=== PATIENT | male | born 1940 | race Caucasian/White ===

== ENCOUNTER 2016-07-22 11:34 | Inpatient (IN) | payer MEDICARE, OTHER ==
--- NOTE | ~2016-07-22 | HP ---
History And Physical [place] [address] [facility] [place]. [address] NAME: ABDI CHING : [birth year] STATUS : REG ER PAT#: [id number] AGE: 76 ADM/REG DATE : 07/22/16 MR#: [id number] REPORT SERV DATE: 07/22/16 DICTATED BY: GLADIS CARDENAS DATE: 07/22/16 REPORT STATUS : Draft TRANSCRIBED BY: KVNG DATE: 07/22/16 DATE OF ADMISSION: 07/22/2016 [employer]ER FARM WORKER: Ladarius Gallardo M.D., F.A.C.C. LICENSED OCCUPATIONAL THERAPY ASSISTANT: Dr. Chilel in [place], [place]. HISTORY OF PRESENT ILLNESS: The patient had surveillance colonoscopy done one year ago where he was found to have some benign polyps. He also had a previous EGD and from what he remembered, it was normal. The patient is an active individual and has this exercise regimen that he does for about eight months now. However, in the last four to five weeks, he noted that he has been having some intermittent melena. He did not think much about it because it turns brown anyway. No hematochezia. The patient occasionally feels bloating but his appetite remained stable, and there is no loss of weight. In about two to three weeks now, the patient has been having progressive shortness of breath, not able to do the same exercise regimen that he is doing and more recently, he just walks to his mailbox, which is about 75 yards and he is already out of breath. The patient was then brought to the emergency room where he was found to be anemic and we are called to admit the patient. The patient denies any pain. He denies any near syncopal or syncopal episode. No rashes. No fever, chills, or sweats. No nausea or vomiting. No rashes or joint pains. REVIEW OF SYSTEMS: The rest of the 14-point review of systems is negative except as above. PAST MEDICAL HISTORY: Includes CAD with history of stents and [place], hypertension, and diabetes. ALLERGIES: HE HAS NO KNOWN DRUG ALLERGIES. MEDICATIONS: Include Norvasc, aspirin, Lipitor, Lasix, Amaryl, lisinopril, nitroglycerin, MiraLAX, potassium, Metamucil, Janumet. Of note, he takes Aleve seldom for occasional headaches. FAMILY HISTORY: Heart disease runs in the family, not sure about high blood pressure. Brother with diabetes. SOCIAL HISTORY: The patient does not smoke, but chews tobacco. Ex-alcoholic. No IVDU. PHYSICAL EXAMINATION: GENERAL: The patient is alert and oriented x3, not in cardiopulmonary distress. VITAL SIGNS: Include a blood pressure of 127/59, temperature of 98.2, pulse rate of 100, respiration of 16, saturating 95% on room air. NECK: He has supple neck. No JVD or carotid bruits. No lymphadenopathy. [place] conjunctivae. Anicteric sclerae. No pharyngeal erythema. LUNGS: Clear. No rales. No wheezes. CARDIOVASCULAR: Regular rate and rhythm. There is 2/6 systolic murmur. History And Physical [address] [address] NAME: ABDI CHING : 40 STATUS : REG ER PAT#: [id number] AGE: 76 ADM/REG DATE : 07/22/16 MR#: [id number] REPORT SERV DATE: 07/22/16 DICTATED BY: GLADIS CARDENAS DATE: 07/22/16 REPORT STATUS : Draft TRANSCRIBED BY: KVNG DATE: 07/22/16 ABDOMEN: Positive bowel sounds. Soft and nontender. No masses. EXTREMITIES: Fair pulses. No edema. NEURO: Nonlocalizing. LABORATORY DATA: Reveals an x-ray showing mild cardiomegaly, [id number]-os-[id number] congestive failure changes. CAT scan of the chest, abdomen, and pelvis showing no evidence of acute abnormality, bilateral pleural fluid and bibasilar atelectasis, cholelithiasis with no pericholecystic inflammation, bilateral renal cysts, diverticulosis with no evidence of diverticulitis, calcific atherosclerosis. Chemistry showing a glucose of 186, albumin of 2.9, lipase is negative, troponin is negative, BNP of 174. White count of 9.2, but H and H is 7.8 and 25 and previously, it was 10.4 and 33, 10 months ago. MCV of 79.4. Urinalysis is unremarkable as well. ASSESSMENT: 1. Symptomatic anemia. 2. Possible gastrointestinal bleed. 3. coronary artery disease with history of stents and myocardial infarction. 4. Hypertension. 5. Diabetes. PLAN: The patient's H and P points to a possible GI bleed. We will admit to telemetry and hold the aspirin and Aleve for now. Monitor H and H. Transfuse p.r.n. I will place on PPI drip for now and get GI to scope. We will hold diuretics put parameters on the rest of the blood pressure medications, place on subcu insulin protocol and check the hemoglobin A1c. This was explained to him in front of the son, and they agreed and understood the plan. DANIELA/KVNG Gladis Cardenas M.D. / [id number] CC: FRANK CORDERO
--- NOTE | ~2016-07-22 | EGD ---
EGD REPORT [facility] [address] [place] [address] NAME: ABDI CHING : 40 STATUS : ADM IN PAT#: [id number] AGE: 76 ADM/REG DATE : 07/22/16 MR#: [id number] REPORT SERV DATE: 07/24/16 DICTATED BY: ZIA CARMONA DATE: 07/24/16 REPORT STATUS : Draft TRANSCRIBED BY: [employer] DATE: 07/24/16 [facility] Patient Name: Abdi Ching Date of : 1940 Attending MD: ZIA CARMONA, Procedure Date No Time: 07/24/2016 Procedure: Colonoscopy Indications: Melena, Iron deficiency anemia Medicines: Monitored Anesthesia Care Complications: No immediate complications. Estimated blood loss: None. Procedure: Pre-Anesthesia Assessment: - ASA Grade Assessment: IV - A patient with severe systemic disease that is a constant threat to life. After I obtained informed consent, the scope was passed under direct vision. Throughout the procedure, the patient's blood pressure, pulse, and oxygen saturations were monitored continuously. The CF [id number] was introduced through the anus and advanced to the terminal ileum. The colonoscopy was performed without difficulty. The patient tolerated the procedure well. The quality of the bowel preparation was good. Findings: The perianal and digital rectal examinations were normal. Multiple small-mouthed diverticula were found in the sigmoid colon, in the descending colon, in the transverse colon, in the ascending colon and in the cecum. The terminal ileum appeared normal. The exam was otherwise without abnormality on direct and retroflexion views. Impression: - Diverticulosis in the sigmoid colon, in the descending colon, in the transverse colon, in the ascending colon and in the cecum. - The examined portion of the ileum was normal. - The examination was otherwise normal on direct and retroflexion views. Recommendation: - Patient has a contact number available for emergencies. The signs and symptoms of potential delayed complications were discussed with the patient. Return to normal activities tomorrow. Written discharge instructions were provided to the patient. - Return to previous diet. - Continue present medications. EGD REPORT [address] [address] NAME: ABDI CHING : 40 STATUS : ADM IN [facility]#: [id number] AGE: 76 ADM/REG DATE : 07/22/16 MR#: [id number] REPORT SERV DATE: 07/24/16 DICTATED BY: ZIA CARMONA DATE: 07/24/16 REPORT STATUS : Draft TRANSCRIBED BY: [employer] DATE: 07/24/16 - Ferrous sulfate at 325 mg orally daily. - To visualize the small bowel, perform video capsule endoscopy at outpatient appointment to be scheduled. Procedure Code(s): --- Professional --- 90473, Colonoscopy, flexible, proximal to splenic flexure; diagnostic, with or without collection of specimen(s) by brushing or washing, with or without colon decompression (separate procedure) Diagnosis Code(s): --- Professional --- K57.30, Diverticulosis of large intestine without perforation or abscess without bleeding K92.1, Melena D50.9, Iron deficiency anemia, unspecified CPT copyright 2013 [employer]. All rights reserved. The codes documented in this report are preliminary and upon manager customer service review may be revised to meet current compliance requirements. ZIA CARMONA, 07/24/2016 8:35 AM Number of Addenda: 0 Note Initiated On: 07/24/2016 8:03 AM [address] [address]
--- NOTE | ~2016-07-22 | DS ---
Discharge Summary [facility] [address] [place]. [address] NAME: ABDI CHING : 40 STATUS : ADM IN [facility]#: [id number] AGE: 76 ADM/REG DATE : 07/22/16 MR#: [id number] REPORT SERV DATE: 07/25/16 DICTATED BY: GLADIS CARDENAS DATE: 07/25/16 REPORT STATUS : Draft TRANSCRIBED BY: MODL DATE: 07/25/16 ADMISSION DATE: 07/22/2016 DISCHARGE DATE: SUPPORT ASSISTANT: Ladarius Gallardo M.D., F.A.C.C. GI: Dr. Chilel. CONSULTING PHYSICIANS: Dr. Kim and Dr. Muro. FINAL DIAGNOSES: 1. Acute blood loss anemia, status post 1 unit packed RBC. 2. Likely gastrointestinal bleed. 3. Coronary artery disease with history of stents and myocardial infarction. 4. Hypertension. 5. Diabetes. DIAGNOSTIC EXAM: Colonoscopy showing diverticulosis in the sigmoid colon, in the descending colon, in the transverse colon, in the ascending colon, and in the cecum. Examined portion of the ileum was normal. Examination was otherwise normal on the retroflexion view. EGD; no bleeding found, duodenal polyp resected , pathology pending. Chest x ray; Mild cardiomegaly, recurrent [id number]-swsntktp congestive failure changes. CAT scan of the abdomen and pelvis showing no evidence of acute abnormality within the abdomen or pelvis, bilateral pleural fluid and bibasilar atelectasis, cholelithiasis with no justen cholecystic inflammation, bilateral renal cysts, diverticulosis with no evidence of diverticulitis, calcific atherosclerosis. HOSPITAL COURSE: Please refer to the H and P done by myself dated on 07/22/2016. Briefly, this is a 76-year-old male, with history of CAD, comes in with dyspnea on exertion. The patient admits to having increasing dyspnea on exertion for the last five weeks with intermittent melena. The patient comes in and his H and H was found to be low at 7.8 and 25, from a year ago which is 10.4 and 33. The patient was then admitted and his H and H was monitored. He got one unit of blood and it went up to 8.3 and 26.4. He did not have any more bleeding and the retic count was found to be elevated. Anemia workup revealed that he has iron deficiency anemia. We got GI involved and they did the above scopes, they then signed off. The patient feels better now and we will be discharging him with the above diagnosis. I have discussed with him the findings of the scopes and if this happens again or even later on, it might be worthwhile for him to do a PillCam as the small bowel has not been thoroughly examined. I will give him a prescription for iron 325 mg p.o. b.i.d., with a that this could cause constipation and melena, and he will continue his home medications of Norvasc 10 mg at bedtime, aspirin 81 mg a day, Lipitor 20 mg at bedtime, Lasix 20 mg a day, Amaryl 4 mg twice a day, lisinopril 10 mg a day, potassium 20 mEq every morning, Janumet XR twice a day, Nitrostat p.r.n., MiraLAX p.r.n., psyllium p.r.n. The patient will be following up with his PCP Virginia Alfaro, follow up with Ranjana in a month for consideration of PillCam and also to follow up the duodenal polyp pathology which was taken, and follow up with Ladarius Gallardo M.D., F.A.C.C. as needed Discharge Summary [address] [address] NAME: ABDI CHING : 40 STATUS : ADM IN [facility]#: [id number] AGE: 76 ADM/REG DATE : 07/22/16 MR#: [id number] REPORT SERV DATE: 07/25/16 DICTATED BY: GLADIS CARDENAS DATE: 07/25/16 REPORT STATUS : Draft TRANSCRIBED BY: KVNG DATE: 07/25/16 and as scheduled. This has been explained to the patient. TIME SPENT: 35 minutes. DANIELA/KVNG Gladis Cardenas M.D. / [id number] CC: Georgina Boyer KERRY
--- NOTE | ~2016-07-22 | EGD ---
EGD REPORT [facility] [address] [address] NAME: ABDI CHING : 40 STATUS : ADM IN PAT#: [id number] AGE: 76 ADM/REG DATE : 07/22/16 MR#: [id number] REPORT SERV DATE: 07/23/16 DICTATED BY: CALVIN ANDRADE DATE: 07/23/16 REPORT STATUS : Draft TRANSCRIBED BY: [facility] DATE: 07/23/16 Endoscopy Center Patient Name: Abdi Chnig Date of : 1940 Attending MD: CALVIN ANDRADE MD Procedure Date No Time: 07/23/2016 Procedure: Upper GI endoscopy Indications: Melena Referring MD: FRANK CORDERO Medicines: Monitored Anesthesia Care Complications: No immediate complications. Estimated blood loss: Minimal. Procedure: Pre-Anesthesia Assessment: - ASA Grade Assessment: IV - A patient with severe systemic disease that is a constant threat to life. After obtaining informed consent, the endoscope was passed under direct vision. Throughout the procedure, the patient's blood pressure, pulse, and oxygen saturations were monitored continuously. The GIF [id number] was introduced through the mouth, and advanced to the third part of duodenum. The upper GI endoscopy was accomplished without difficulty. The patient tolerated the procedure well. Findings: The examined esophagus was normal. The entire examined stomach was normal. A single 10 mm sessile polyp with no bleeding was found in the third part of the duodenum. The polyp was removed with a saline injection-lift technique using a hot snare. Resection and retrieval were complete. To prevent bleeding after the polypectomy, two hemostatic clips were successfully placed. There was no bleeding at the end of the procedure. Estimated blood loss was minimal. The cardia and gastric fundus were normal on retroflexion. Impression: - A single duodenal polyp. Resected and retrieved. Clips were placed. - Otherwise normal examination with no suggestion of bleeding Recommendation: - Perform a colonoscopy tomorrow. Procedure Code(s): --- Professional --- 57768, Esophagogastroduodenoscopy, flexible, transoral; with removal of tumor(s), polyp(s), or other lesion(s) EGD REPORT [facility] [address] [place]. [address] NAME: ABDI CHING : 40 STATUS : ADM IN [facility]#: [id number] AGE: 76 ADM/REG DATE : 07/22/16 MR#: [id number] REPORT SERV DATE: 07/23/16 DICTATED BY: CALVIN ANDRADE DATE: 07/23/16 REPORT STATUS : Draft TRANSCRIBED BY: [employer] DATE: 07/23/16 by snare technique 66747, Esophagogastroduodenoscopy, flexible, transoral; with directed submucosal injection(s), any substance Diagnosis Code(s): --- Professional --- K31.7, Polyp of stomach and duodenum K92.1, Melena CPT copyright 2013 [employer]. All rights reserved. The codes documented in this report are preliminary and upon truck railroad and bus motor mechanic review may be revised to meet current compliance requirements. Calvin Andrade MD CALVIN ANDRADE MD 07/23/2016 4:56 PM This report has been signed electronically. Number of Addenda: 0 Note Initiated On: 07/23/2016 4:34 PM [address] [facility] [address] [address] [place] [address]
--- NOTE | ~2016-07-22 | CN ---
Consultation Report [facility] [address] [place]. [address] NAME: ABDI CHING : 40 STATUS : ADM IN [facility]#: [id number] AGE: 76 ADM/REG DATE : 07/22/16 MR#: [id number] REPORT SERV DATE: 07/23/16 DICTATED BY: CONCHA ANAYA DATE: 07/23/16 REPORT STATUS : Draft TRANSCRIBED BY: MODL DATE: 07/23/16 GI CONSULTATION DATE OF CONSULTATION: 07/23/2016 REASON FOR CONSULTATION: Evaluation and management of symptomatic anemia, black stools, and questionable GI bleed. HISTORY OF PRESENT ILLNESS: Mr. Ching is a very pleasant 76-year-old male patient, who is admitted on 07/22/2016 with a chief complaint of black stools and progressive shortness of breath. He states that he has had a GI workup in the past with Dr. Chilel in [place], [place]. He states that he has had a surveillance colonoscopy around one year ago with polyps being removed. The son states that he had an EGD here at [facility] last September; however, it appears this was done also in [place]. The son states that there were some red spots that they found, otherwise it was normal. He did get 2 units of blood when he was in [place]. He states that since September he has done well up until the last few months when he began to have progressive shortness of breath and intermittent melanotic stools. He states that typically he is constipated, and has to use something to aid in having a bowel movement. He has not seen any hematochezia. He states that at times his stools are normal brown, but over the last two weeks, he has had progressive black dark stools. He really denies any abdominal pain. He states he has had some abdominal bloating distention. No nausea or vomiting. No weight loss. He states that he has had no chest pain. No syncopal episodes. No near syncope. I have discussed with the patient as well as the patient's son who is present at the bedside. We will take him for an EGD today. Of note, he is not on any blood thinners other than a baby aspirin. PAST MEDICAL HISTORY: Includes coronary artery disease with a history of stents, myocardial infarction, hypertension, type 2 diabetes, and GI bleed in the past. SOCIAL HISTORY: Denies alcohol. Chews tobacco. Past alcohol use. No illicits. FAMILY HISTORY: Noncontributory from a GI standpoint. ALLERGIES: NO KNOWN ALLERGIES. MEDICATIONS: Norvasc, aspirin, Lipitor, Lasix, Amaryl, Proventil, Aleve which he states he takes sparingly, nitroglycerin spray, MiraLAX, potassium, Metamucil, and Janumet. REVIEW OF SYSTEMS: A 10-point review of systems has been obtained with pertinent positives being addressed in the history of present illness. PHYSICAL EXAMINATION: VITAL SIGNS: Temperature is 98.3, pulse 87, respirations 14, and blood pressure is 126/59. Consultation Report [address] [place]. [address] NAME: ABDI CHING : 40 STATUS : ADM IN [facility]#: [id number] AGE: 76 ADM/REG DATE : 07/22/16 MR#: [id number] REPORT SERV DATE: 07/23/16 DICTATED BY: CONCHA ANAYA DATE: 07/23/16 REPORT STATUS : Draft TRANSCRIBED BY: KVNG DATE: 07/23/16 NEUROLOGIC: Reveals an alert male, resting in bed. No focal deficits. GENERAL: He is cooperative. He is in no apparent distress. He is awake, he is alert, and he is oriented x3. HEAD, EARS, EYES, NOSE, AND THROAT: Anicteric. Pupils are equal, round, and reactive to light and accommodation. Normocephalic and atraumatic. NECK: No JVD. No palpable nodes. ABDOMEN: Round and nontender with active bowel sounds in all four quadrants. No organomegaly appreciated. EXTREMITIES: 1 to 2+ bilateral lower extremity edema. SKIN: Warm, dry, and intact. PERTINENT LABORATORY DATA: Sodium 143, potassium 4.0, BUN is 13, and creatinine 0.9. White count 9.2, hemoglobin 7.4, and hematocrit 23.6. Of note, in September of 2015, he had a hemoglobin of 10.6. ASSESSMENT: 1. Melanotic stools for the last several weeks. 2. Symptomatic anemia. 3. History of coronary artery disease. 4. Abdominal distention. PLAN: 1. Continue n.p.o. status. 2. EGD this afternoon with Dr. Muro. 3. Questionable addition of small bowel enteroscopy at the same time. 4. Discussed with them with questionable small-bowel capsule exam as an outpatient. We will transfuse per parameters. 5. Continue Protonix drip. ANA/KVNG Concha ADELITA Guzman / [id number] CC: Georgina Boyer
[2016-07-22 10:36] LABS: BASOPHILS 0.2 %; BASOPHILS ABSOLUTE 0.02 10/3/uL (0.0-0.16); EOSINOPHILS 1.9 %; EOSINOPHILS ABSOLUTE 0.17 10/3/uL (0.0-0.53); ER CBC TAT 0 Hrs 09 Mins; HEMOGLOBIN 7.8 g/dL (13.6-17.8); IMMATURE GRANULOCYTES 0.3 %; IMMATURE GRANULOCYTES ABSOLUTE 0.03 10/3/uL (0.0-0.11); LYMPHOCYTES 18.3 %; LYMPHOCYTES ABSOLUTE 1.67 10/3/uL (0.67-4.30); MANUAL DIFF NO %; MEAN CORPUS HGB CONC 31.2 g/dL (32.0-36.0); MEAN CORPUSCULAR HEMOGLOB 24.8 pg (26.0-34.0); MEAN CORPUSCULAR VOLUME 79.4 fL (80-100); MEAN PLATELET VOLUME 9.2 fL (9.2-13.0); MONOCYTES 11.5 %; MONOCYTES ABSOLUTE 1.05 10/3/uL (0.21-1.20); NEUTROPHILS 67.8 %; NEUTROPHILS ABSOLUTE 6.21 10/3/uL (2.02-8.40); PLATELET COUNT 285 10/3/uL (150-400); RBC DISTRIBUTION WIDTH 15.1 % (12.0-16.0); RED CELL COUNT 3.15 10/6/uL (4.7-6.1); WHITE BLOOD CELLS 9.2 10/3/uL (4.5-10.5)
[2016-07-22 10:45] LABS: INTERNATIONAL NORMAL RATI 1.1 UNITS (-); PARTIAL THROMBO TIME 28.4 SEC (22.5-37.2)
[2016-07-22 10:53] LABS: ALBUMIN 2.9 G/DL (3.5-5.0); ALKALINE PHOSPHATASE 80 U/L (45-117); CALCIUM, SERUM 8.6 MG/DL (8.5-10.4); CHEST PAIN PROFILE TAT 0 Hrs 26 Mins; CHLORIDE, SERUM 109 MMOL/L (96-112); CO2 (CARBON DIOXIDE) 22 MMOL/L (24-34); CREATININE 1.18 MG/DL (0.70-1.30); GFR AFRICAN AMERICAN 69 ML/MIN (>=60); GFR NON AFRICAN AMERICAN 60 ML/MIN (>=60); POTASSIUM, SERUM 4.9 MMOL/L (3.5-5.3); SGOT(AST) 13 U/L (5-40); SGPT(ALT) 18 U/L (5-65); SODIUM, SERUM 142 MMOL/L (135-148); TOTAL BILIRUBIN 0.3 MG/DL (0-1.2); TOTAL PROTEIN 6.7 G/DL (6.0-8.5); TROPONIN I 0.02 NG/ML (<0.05)
[2016-07-22 10:55] LABS: BUN (BLOOD UREA NITROGEN) 19 MG/DL (6-23); DIRECT BILIRUBIN < 0.1 MG/DL (0.0-0.4); GLUCOSE, SERUM 186 MG/DL (60-99); INDIRECT BILIRUBIN(NOT ORDER) 0.2 MG/DL (0.1-0.9)
[2016-07-22 11:08] LABS: ASCORBIC ACID (UR NOT ORDER) NEG (NEG); BILIRUBIN, URINE NEGATIVE (NEG); ER URINALYSIS TAT 0 Hrs 07 Mins; KETONE, URINE NEGATIVE (NEG); LEUKOCYTE ESTERASE(NOT OR NEG (NEG); NITRITE (URINE) NEG (NEG); WBC (NOT ORDERED) (RFLEX) < 1 (0-5)
[2016-07-22] MEDS ORDERED: PRIN10 PO (11:59)
[2016-07-22] MEDS ORDERED: ASAB PO (12:01)
[2016-07-22] MEDS ORDERED: AMARYL4 PO (12:01)
[2016-07-22] MEDS ORDERED: NITROSTAT0.4 MG SL (12:02)
[2016-07-22] MEDS ORDERED: ALEVE220 MG PO (12:02)
[2016-07-22] MEDS ORDERED: JANUMET XR 50-1 EAC1 PO (12:03)
[2016-07-22] MEDS ORDERED: L20 PO (12:03)
[2016-07-22] MEDS ORDERED: NORV10 PO (12:04)
[2016-07-22] MEDS ORDERED: LIPITOR20 PO (12:04)
[2016-07-22] MEDS ORDERED: KLOR-CON M2020 MEQ PO (12:04)
[2016-07-22] MEDS ORDERED: METPAKSF PO (12:05)
[2016-07-22] MEDS ORDERED: MIRALAX POWDER1 PKT PO (12:05)
[2016-07-22 15:03] LABS: % IRON SAT 3 % (20-50); FERRITIN 10 NG/ML (26-388); IRON BINDING CAPACITY 397 MCG/DL (250-450); IRON, SERUM 13 MCG/DL (35-150)
[2016-07-22 15:36] LABS: HEMATOCRIT 24.8 % (40.0-51.0); HEMOGLOBIN 7.7 g/dL (13.6-17.8)
[2016-07-22 22:20] LABS: HEMATOCRIT 24.8 % (40.0-51.0); HEMOGLOBIN 7.7 g/dL (13.6-17.8)
[2016-07-23 07:26] LABS: HEMATOCRIT 23.6 % (40.0-51.0); HEMOGLOBIN 7.4 g/dL (13.6-17.8)
[2016-07-23 07:38] LABS: CALCIUM, SERUM 8.3 MG/DL (8.5-10.4); CHLORIDE, SERUM 109 MMOL/L (96-112); CO2 (CARBON DIOXIDE) 24 MMOL/L (24-34); GFR AFRICAN AMERICAN 96 ML/MIN (>=60); GFR NON AFRICAN AMERICAN 83 ML/MIN (>=60); SODIUM, SERUM 143 MMOL/L (135-148)
[2016-07-23 07:39] LABS: BUN (BLOOD UREA NITROGEN) 13 MG/DL (6-23); GLUCOSE, SERUM 90 MG/DL (60-99)
[2016-07-24 16:57] LABS: BASOPHILS 0.2 %; BASOPHILS ABSOLUTE 0.02 10/3/uL (0.0-0.16); EOSINOPHILS 2.9 %; EOSINOPHILS ABSOLUTE 0.25 10/3/uL (0.0-0.53); HEMATOCRIT 24.6 % (40.0-51.0); HEMOGLOBIN 7.4 g/dL (13.6-17.8); IMMATURE GRANULOCYTES 0.2 %; IMMATURE GRANULOCYTES ABSOLUTE 0.02 10/3/uL (0.0-0.11); LYMPHOCYTES ABSOLUTE 1.65 10/3/uL (0.67-4.30); MEAN CORPUS HGB CONC 30.1 g/dL (32.0-36.0); MEAN CORPUSCULAR HEMOGLOB 23.5 pg (26.0-34.0); MEAN CORPUSCULAR VOLUME 78.1 fL (80-100); MEAN PLATELET VOLUME 9.8 fL (9.2-13.0); MONOCYTES 18.2 %; MONOCYTES ABSOLUTE 1.58 10/3/uL (0.21-1.20); NEUTROPHILS 59.5 %; NEUTROPHILS ABSOLUTE 5.16 10/3/uL (2.02-8.40); PLATELET COUNT 291 10/3/uL (150-400); RBC DISTRIBUTION WIDTH 15.1 % (12.0-16.0); RED CELL COUNT 3.15 10/6/uL (4.7-6.1); RETICULOCYTE COUNT ABSOLUTE 63.9 10/3/uL (20.2-119.8); WHITE BLOOD CELLS 8.7 10/3/uL (4.5-10.5)
[2016-07-24 17:00] LABS: MANUAL DIFF NO %
[2016-07-25 07:17] LABS: BASOPHILS 0.2 %; BASOPHILS ABSOLUTE 0.02 10/3/uL (0.0-0.16); EOSINOPHILS 3.9 %; EOSINOPHILS ABSOLUTE 0.34 10/3/uL (0.0-0.53); HEMATOCRIT 26.4 % (40.0-51.0); HEMOGLOBIN 8.3 g/dL (13.6-17.8); IMMATURE GRANULOCYTES 0.3 %; IMMATURE GRANULOCYTES ABSOLUTE 0.03 10/3/uL (0.0-0.11); LYMPHOCYTES 16.8 %; LYMPHOCYTES ABSOLUTE 1.45 10/3/uL (0.67-4.30); MEAN CORPUS HGB CONC 31.4 g/dL (32.0-36.0); MEAN CORPUSCULAR HEMOGLOB 24.6 pg (26.0-34.0); MEAN CORPUSCULAR VOLUME 78.1 fL (80-100); MEAN PLATELET VOLUME 9.7 fL (9.2-13.0); MONOCYTES 16.1 %; MONOCYTES ABSOLUTE 1.39 10/3/uL (0.21-1.20); NEUTROPHILS 62.7 %; NEUTROPHILS ABSOLUTE 5.39 10/3/uL (2.02-8.40); PLATELET COUNT 272 10/3/uL (150-400); RBC DISTRIBUTION WIDTH 14.8 % (12.0-16.0); RED CELL COUNT 3.38 10/6/uL (4.7-6.1); WHITE BLOOD CELLS 8.6 10/3/uL (4.5-10.5)
[2016-07-25 07:19] LABS: MANUAL DIFF NO %
[2016-07-25] MEDS ORDERED: NUIRONCAP PO (09:01)
== END 2016-07-25 11:40 | disposition home or self-care (01) | DRG 378 ==
LOC: ER 11:34 → 4SO 17:52
PROVIDERS: Emergency Medicine; Internal Medicine; Internal Medicine Gastroenterology
PROC: 0DB98ZX Excision of Duodenum, Via Natural or Artificial Opening Endoscopic, Diagnostic (ICD-10-PCS; principal; 2016-07-23 16:37)
PROC: 0DJD8ZZ Inspection of Lower Intestinal Tract, Via Natural or Artificial Opening Endoscopic (ICD-10-PCS; 2016-07-24)
PROC: 30233N1 Transfusion of Nonautologous Red Blood Cells into Peripheral Vein, Percutaneous Approach (ICD-10-PCS; 2016-07-24)
DX: K92.2 Gastrointestinal hemorrhage, unspecified (principal); D62 Acute posthemorrhagic anemia; I50.9 Heart failure, unspecified; E11.9 Type 2 diabetes mellitus without complications; N28.1 Cyst of kidney, acquired; I10 Essential (primary) hypertension; D50.9 Iron deficiency anemia, unspecified; K31.7 Polyp of stomach and duodenum; K57.30 Diverticulosis of large intestine without perforation or abscess without bleeding; I25.10 Atherosclerotic heart disease of native coronary artery without angina pectoris; K80.20 Calculus of gallbladder without cholecystitis without obstruction; K59.00 Constipation, unspecified; I35.0 Nonrheumatic aortic (valve) stenosis; I25.2 Old myocardial infarction; Z86.010 Personal history of colon polyps; Z95.5 Presence of coronary angioplasty implant and graft; Z82.49 Family history of ischemic heart disease and other diseases of the circulatory system; Z83.3 Family history of diabetes mellitus
CPT/HCPCS: 36415; 71010; 74176; 80048; 80076; 81001; 82272; 82728; 82962; 83036; 83540; 83550; 83690; 83735; 83880; 84484; 85014; 85018; 85025; 85045; 85610; 85730; 86850; 86900; 86901; 86920; 87493; 87493-59; 88305; 93005; 96374; 99285; A9270-GY; C9113; P9016